=== PATIENT | male | born 1965 | race Caucasian/White ===

== ENCOUNTER → 2017-03-31 | Outpatient (CLI) | payer OTHER ==
[~2017-03-31] MED LIST: ACET-1256 PO; ALPH100C8 PO; ARGI1CAP2 PO; BUPR-79 PO; GLCSR/500 PO; INSUINJ4 SC; LISI-787 PO; LTRSCR45 TOP; MULT-506 PO; NYSCR30 TOP; OMEG100046 PO; TRMO2580 TOP; WARF-246 PO; WLLSR150 PO
[2017-03-31 16:27] LABS: BASO % 0.4 %; BASO ABS # 0.03 K/uL (0-0.2); COMPLETE YES; EOS % 1.7 %; HEMATOCRIT 46.4 % (42-52); IG% 0.3 %; LYMPH % 29.4 %; LYMPH ABS # 2.27 K/uL (1.2-3.4); MEAN CELL VOLUME 90.6 fL (80-100); MEAN CORPUSCULAR HGB CONC 35.3 g/dl (32-36); MEAN PLATELET VOLUME 9.8 fL (7.4-10.4); MONO % 8.8 %; NEUT % 59.4 %; PLATELET COUNT 210 K/uL (130-400); RED BLOOD COUNT 5.12 M/uL (4.7-6.1); WHITE BLOOD COUNT 7.73 K/uL (4.8-10.8)
[2017-03-31 16:47] LABS: PARTIAL THROMBOPLASTIN RATIO 1.4; PROTHROMBIN TIME (PATIENT) 33.9 SECONDS (9.0-12.0)
[2017-03-31 16:48] LABS: ALT/SGPT 45 U/L (12-78); BLOOD UREA NITROGEN 21 mg/dl (7-18); BUN/CREATININE RATIO 18.9 (10-20); CALCIUM 9.2 mg/dl (8.5-10.1); CARBON DIOXIDE 27 mmol/L (21-32); CHLORIDE 106 mmol/L (98-107); GLUCOSE 121 mg/dl (70-99); POTASSIUM 3.8 mmol/L (3.5-5.1); SODIUM 139 mmol/L (136-145)
[2017-03-31 16:51] LABS: ALB/GLOB RATIO 1.2 (0.9-2); ALKALINE PHOSPHATASE 57 U/L (45-117); AST/SGOT 27 U/L (15-37)
== END | disposition home or self-care (01) ==
LOC: C.LAB 15:44
PROVIDERS: ATTEND Internal Medicine Pulmonary Disease
DX: R06.02 Shortness of breath (principal); R07.9 Chest pain, unspecified

== ENCOUNTER → 2017-04-02 | Outpatient (CLI) | payer OTHER ==
[~2017-04-02] MED LIST changes: +OPTIRAY 320 IV PRN
--- NOTE | 2017-04-02 11:23 | DIAGNOSTIC IMAGING REPORT ---
CHEST CT WITH CONTRAST CT DOSE: 995.99 mGy.cm HISTORY: R06.02 Shortness of breath R07.9 Chronic chest pain [id number] TECHNIQUE: Multiaxial CT images of the chest were performed following the intravenous administration of contrast. 94 ml Optiray 320 was administered. A dose lowering technique was utilized adhering to the principles of ALARA. COMPARISON: CTA of the chest 06/20/2015. FINDINGS: No dominant thyroid nodule. No focal adenopathy of the chest. There is mild bilateral symmetric gynecomastia. Heart is normal in size without pericardial effusion. Coronary arterial calcifications are present. Thoracic aorta is normal in course and caliber. The opacified pulmonary arterial tree is unremarkable. No pneumothorax, pleural effusion or focal airspace consolidation. There is minimal linear subsegmental atelectasis of the anterior lung bases. Central airways are patent. Upper abdominal structures demonstrate no acute abnormality. The bones appear intact. Mild multilevel endplate spurring is seen throughout the thoracic spine. IMPRESSION: No significant abnormality identified within the chest. Electronically signed by: Darren Hernandez M.D. 04/02/2017 11:22 AM Dictated Date/Time: 04/02/2017 11:18 AM
--- NOTE | 2017-04-02 18:01 | DOBUTAMINE ECHO ---
*NOTICE TO RECEIVING LIBERTARIAN AGENCY This information is strictly Confidential and protected under [place] law. [place] law prohibits you from making any further disclosure of this information unless further disclosure is expressly permitted by the written consent of the person to whom it pertains or is authorized by law. A general authorization for the release of medical or other information is not sufficient for this purpose. Hospital accepts no responsibility if the information is made available to any other person, INCLUDING THE PATIENT. Interpretation Summary * Name: LEXI CANCHOLA Study Date: 04/02/2017 09:41 AM BP: 122/90 mmHg * Patient Location: [facility] HR: 66 * : 1965 (M/d/yyyy) Gender: Male Height: 72 in * Age: 51 yrs Ethnicity: CA Weight: 289 lb * Ordering Physician: Poncho Brantley * Referring Physician: Poncho Brantley * Performed By: Yarelis Cali RCS * * Reason For Study: Chest pain * BSA: 2.5 m2 * -- Conclusions -- * Stress Echo: * 1. Negative stress echo for ischemia at 87 % MPHR. * 2. Negative exercise ECG for ischemia at 87 % MPHR. * 3. Hypertensive blood pressure response to exercise. (Pt did not take antihypertensive medications today.) * 4. No arrhythmia. * 5. Study terminated due to hypertension. No chest pain reported. * 6. Good exercise tolerance. * Echo: * 1. Normal left ventricular size and systolic function. EF 60-65%. No regional wall motion abnormalities. Mild concentric left ventricular hypertrophy. * 2. No significant valvular abnormalities. * 3. No significant diastolic dysfunction. Procedure Details * Left Ventricle The left ventricle is normal in size. There is mild concentric left ventricular hypertrophy. Ejection Fraction = 60-65%. The left ventricular wall motion is normal at rest. Resting wall motion: Normal. Stress wall motion: Appropriate increase in Left ventricular systolic function and decrease in cavity size. No stress induced segmental wall motion abnormalities. The left ventricular ejection fraction increases normally with stress. The left ventricular end-systolic cavity size reduces post-stress (normal response). The left ventricular wall motion with stress is normal. * Right Ventricle The right ventricle is normal in size and function. * Atria The left atrial size is normal. Right atrial size is normal. There is no evidence of atrial septal defect, but resolution does not allow assessment for a patent foramen ovale. * Mitral Valve The mitral valve is grossly normal. There is no mitral valve stenosis. Significant mitral regurgitation is absent. * Tricuspid Valve The tricuspid valve is not well visualized, but is grossly normal. There is no tricuspid stenosis. Significant tricuspid regurgitation is absent. * Aortic Valve The aortic valve is normal in structure and function. The aortic valve is trileaflet. No hemodynamically significant valvular aortic stenosis. No aortic regurgitation is present. * Pulmonic Valve The pulmonary valve is inadequately visualized, but the Doppler data is adequate for interpretation. Trace pulmonic valvular regurgitation. * Great Vessels The aortic root is normal size. Ascending aorta of normal dimension * Pericardium There is no pericardial effusion. * Stress Parameters NSR at 65 bpm. Stress ECG: No ST changes. No arrhythmias. No arrhythmia were noted with stress. The stress portion of this study was personally supervised by the undersigned interpreting physician. Rest heart rate was '67' BPM. Rest blood pressure was '122/90' Maximum heart rate achieved was 150 bpm. Maximum heart rate was 87 % of maximum age-predicted heart rate. Maximum blood pressure was '237/108' Total exercise time was '9:00' Maximum exercise MET level achieved was '10.4' METS Maximum treadmill speed was '3.4' miles per hour. Maximum treadmill elevation was '14'% grade. Exercise was terminated due to 'hypertension' Exercise-induced hypertension. * * MMode 2D Measurements and Calculations * IVSd 1.3 cm * * LVIDd 5.2 cm * LVIDs 3.5 cm * LVPWd 1.2 cm * * IVS/LVPW 1.1 * FS 33.4 % * EDV(Teich) 131.7 ml * ESV(Teich) 50.5 ml * EF(Teich) 61.7 % * * EDV(cubed) 143.7 ml * ESV(cubed) 42.5 ml * EF(cubed) 70.5 % * * LV mass(C)d 258.4 grams * LV mass(C)dI 103.7 grams/m\S\2 * * SV(Teich) 81.2 ml * SI(Teich) 32.6 ml/m\S\2 * SV(cubed) 101.3 ml * SI(cubed) 40.6 ml/m\S\2 * * Ao root diam 3.3 cm * Ao root area 8.8 cm\S\2 * * asc Aorta Diam 3.2 cm * * LVOT diam 2.2 cm * LVOT area 3.9 cm\S\2 * * LVAd ap4 29.1 cm\S\2 * LVLd ap4 8.0 cm * EDV(MOD-sp4) 87.3 ml * EDV(sp4-el) 89.3 ml * LVAs ap4 17.1 cm\S\2 * LVLs ap4 7.1 cm * ESV(MOD-sp4) 37.6 ml * ESV(sp4-el) 35.1 ml * EF(MOD-sp4) 57.0 % * EF(sp4-el) 60.7 % * * SV(MOD-sp4) 49.7 ml * SI(MOD-sp4) 20.0 ml/m\S\2 * * SV(sp4-el) 54.2 ml * SI(sp4-el) 21.8 ml/m\S\2 * * * Doppler Measurements and Calculations * MV E max david 82.4 cm/sec * MV A max david 69.0 cm/sec * * MV E/A 1.2 * * MV dec time 0.22 sec * * Ao V2 max 124.1 cm/sec * Ao max PG 6.2 mmHg * Ao max PG (full) 1.9 mmHg * EVELYN(V,A) 3.2 cm\S\2 * EVELYN(V,D) 3.2 cm\S\2 * * LV V1 max PG 4.2 mmHg * * LV V1 max 102.9 cm/sec * * * *
== END | disposition home or self-care (01) ==
LOC: C.CPL 09:13
PROVIDERS: ATTEND Internal Medicine Pulmonary Disease
DX: R06.02 Shortness of breath (principal); R07.9 Chest pain, unspecified

== ENCOUNTER 2017-04-10 06:38 | Day surgery (SDC) | payer OTHER ==
[2017-04-10] VITALS (15 sets, daily range): BP systolic 95–136; BP diastolic 54–89; PULSE 56–87; TEMP 36.5–36.8; O2SAT 91–98; Ht 182.9 cm; Wt 131.7 kg
[~2017-04-10] VITALS: Ht 182.9 cm; Wt 131.7 kg
[~2017-04-10 06:38] MED LIST changes: -ALPH100C8 PO; -ARGI1CAP2 PO; -BUPR-79 PO; -OMEG100046 PO; -OPTIRAY 320 IV PRN; -TRMO2580 TOP
[2017-04-10] MEDS ORDERED: LEVALBUTEROL 1.25MG/3ML NEB INH ONE (06:39)
[2017-04-10] MEDS ORDERED: IPRATROPIUM BROMIDE NEB SOLN 0.02% 2.5 ML VIAL INH ONE (06:39)
[2017-04-10] MEDS ORDERED: FENTANYL CITRATE 100 MCG 2 ML CARP IV ONE (06:39)
[2017-04-10] MEDS ORDERED: MIDAZOLAM HCL 5 MG/ML 1 ML VIAL IV ONE ×2 (06:39→10:15)
--- NOTE | 2017-04-10 07:38 | History & Physical Bridge Note ---
H&P Re-Evaluation Bridge Note: I have examined the patient, reviewed the History & Physical and in the interval since the performance of the History & Physical I have noted the following changes of clinical significance: No changes noted
--- NOTE | 2017-04-10 07:39 | Procedure Note ---
Pre-Mod Sedation Assessment General Date of Moderate Sedation: Apr 10, 2017. Pre-Sedation Airway Assessment Smoking Status: Former Smoker Mallampati Classification: Class II ASA Classification: Class II Procedure Planning Contraindications-for Mod Sed: None Yes Notes The planned sedation has been discussed with the patient and consent obtained. I have identified the patient, determined the appropriateness of sedation and have assessed the patient immediately prior to the procedure. All medicine(s) and interventions are by my order.
[2017-04-10] MEDS ORDERED: TRMO2580 TOP (07:52)
[2017-04-10] MEDS ORDERED: BUPR-79 PO (07:57)
[2017-04-10] MEDS ORDERED: ARGI1CAP2 PO (07:58)
[2017-04-10] MEDS ORDERED: ALPH100C8 PO (08:01)
[2017-04-10] MEDS ORDERED: OMEG100046 PO (08:01)
[2017-04-10 08:56] LABS: INR 1.1 (0.9-1.1); PROTHROMBIN TIME (PATIENT) 11.3 SECONDS (9.0-12.0)
--- NOTE | 2017-04-10 09:28 | Discharge Instructions ---
Discharge Instructions Date of Service Apr 10, 2017. Admission Reason for Admission: Chronic Chest Pain, Sob Discharge Discharge Diagnosis / Problem: Chronic Mucopurulent Bronchitis Discharge Goals Goal(s): Diagnostic testing, Therapeutic intervention Activity Recommendations Activity Limitations: resume your previous activity Lifting Limitations: none Exercise/Sports Limitations: none May Resume Sexual Activity: when tolerated Shower/Bathe: no limitations Driving or Machine Use: resume 1 day after discharge None . Current Hospital Diet Patient's current hospital diet: Discharge Diet Recommended Diet: Regular Diet Fluid Restriction: None Pending Studies Studies pending at discharge: no Medical Emergencies . Who to Call and When: Medical Emergencies: If at any time you feel your situation is an emergency, please call 911 immediately. . Non-Emergent Contact Non-Emergency issues call your: Lathe Setup Operator Call Non-Emergent contact if: temperature is above 101 . . "Provider Documentation" section prepared by Poncho Brantley. . VTE Core Measure Inpt VTE Proph given/why not?: Treatment not indicated
[2017-04-10] MEDS ORDERED: NURSING VERBAL MED ORDER ONE (09:30)
--- NOTE | 2017-04-10 10:03 | OPERATIVE REPORT ---
DATE OF OPERATION: 04/10/2017 PROCEDURE: Fiberoptic bronchoscopy with bronchoalveolar lavage. INDICATIONS: Longstanding smoking history/progressive dyspnea and cough refractory to outpatient therapy. ANESTHESIA PREOPERATIVELY: None. ANESTHESIA DURING PROCEDURE: 5 mg IV Versed, 50 mcg IV fentanyl, 20 mL 2% Xylocaine spray above and below the cords, 4% viscous Xylocaine intranasally. PROCEDURE: Fiberoptic bronchoscope was inserted into the right naris with minimal difficulty and passed to the level of the true vocal cords. The cords appeared to approximate normally with phonation without evidence of lesions or paralysis. The scope was then introduced in the right and left tracheobronchial tree. The jairo was sharp. The right main stem bronchus was found to be free of endobronchial lesions. The right upper lobe, the apical posterior, anterior segments, bronchus intermedius, right middle lobe and the medial and lateral segments and all basilar segments right lower lobe were found to be free of endobronchial lesions with a moderate amount of mucopurulent secretion lavaged from the right middle and right lower lobe basilar segments until clear. Severe inflammatory mucosal change was seen globally with impressive bronchial crypts and clefts seen throughout the right tracheobronchial tree. Left tracheobronchial tree showed the same degree of global inflammatory mucosal change with mucopurulent secretion lavaged from all lobar segments until clear. The left upper lobe, the apical-posterior and anterior segments, lingular subdivision with the superior and inferior segments and all basilar segments of left lower lobe were found to be free of endobronchial lesions. No brushings or biopsies were obtained. Fluoroscopy was not utilized. The aspirate was all sent for appropriate studies. The patient's procedure was terminated. He was given a nebulizer treatment with Xopenex 1.25 mg and transferred to the medical treatment unit hemodynamically stable with no signs of respiratory compromise. Will await microbiological and cytologic examination of the bronchial washings. I attest to the content of the Intraoperative Record and any orders documented therein. Any exception s are noted below.
[2017-04-10] MEDS ORDERED: FENTANYL CITRATE INJ 50 MCG/1 ML 2 ML VIAL IV ONE (10:15)
[2017-04-15 15:05] LABS: HERPES SIMPLEX CULT SOURCE RESPIRATORY-R&L BAL; HERPES SIMPLEX VIRUS CULT NOT ISOLATED (NOT ISOLATED)
== END 2017-04-10 11:50 | disposition home or self-care (01) ==
LOC: C.ACU 06:38
PROVIDERS: ATTEND Internal Medicine Pulmonary Disease
DX: R06.00 Dyspnea, unspecified (principal); R05 Cough; E11.9 Type 2 diabetes mellitus without complications; E72.12 Methylenetetrahydrofolate reductase deficiency; I10 Essential (primary) hypertension; F32.9 Major depressive disorder, single episode, unspecified; G89.29 Other chronic pain; R07.9 Chest pain, unspecified; Z86.711 Personal history of pulmonary embolism; Z86.718 Personal history of other venous thrombosis and embolism; Z87.891 Personal history of nicotine dependence; Z79.84 Long term (current) use of oral hypoglycemic drugs; Z79.899 Other long term (current) drug therapy; Z79.01 Long term (current) use of anticoagulants